=== PATIENT | male | born 1980 | race Caucasian/White ===

== ENCOUNTER 2017-11-12 11:35 | Observation (INO) | payer OTHER ==
[~2017-11-12] VITALS: Ht 180.3 cm; Wt 69.0 kg
[~2017-11-12 11:35] MED LIST: BENADRYL25 MG PO; Bactrim Ds Tab1 EACH PO; EPIPEN 2-P0.3 MG/0.3 IM; Keflex500 MG PO; Norco 5-325 Ta1 EACH PO; Pepcid20 MG PO
[2017-11-12 13:05] LABS: BASOPHILS ABSOLUTE AUTO 0.02 K/mm3 (0.00-0.23); BASOPHILS PERCENT AUTO 0 % (0-2); EOSINOPHILS ABSOLUTE AUTO 0.72 K/mm3 (0.00-0.68); EOSINOPHILS PERCENT AUTO 7 % (0-6); Hematocrit 41.2 % (37.0-53.0); Hemoglobin 13.8 g/dL (13.5-17.5); IMMATURE GRAN ABSOLUTE AUTO 0.03 K/mm3 (0.00-0.10); IMMATURE GRAN PERCENT AUTO 0 % (0-1); LYMPHOCYTES ABSOLUTE AUTO 2.43 K/mm3 (0.84-5.20); LYMPHOCYTES PERCENT AUTO 25 % (21-46); MONOCYTES ABSOLUTE AUTO 1.03 K/mm3 (0.16-1.47); MONOCYTES PERCENT AUTO 11 % (4-13); Mean Corpuscular HGB 30.4 pg (26.0-34.0); Mean Corpuscular HGB Conc 33.5 g/dL (31.5-36.5); Mean Platelet Volume 9.6 fL (9.1-12.4); NEUTROPHILS ABSOLUTE AUTO 5.61 K/mm3 (1.96-9.15); NEUTROPHILS PERCENT AUTO 57 % (41-73); Platelet Count 300 K/mm3 (150-400); RDW Coefficient Variation 12.1 % (11.7-14.2); RDW Standard Deviation 40.6 fL (35.1-46.3); Red Blood Cell Count 4.54 M/mm3 (4.30-5.90); White Blood Cell Count 9.84 K/mm3 (4.00-11.30)
[2017-11-12 13:09] LABS: Mean Corpuscular Volume 91 fL (80-100)
[2017-11-12 13:32] LABS: Alanine Aminotransfer (ALT/SGP 47 U/L (12-78); Alk Phos 61 U/L (50-136); Anion Gap 6 mmol/L (6-16); Aspartate Aminotrans (AST/SGOT 51 U/L (12-37); Bilirubin, Total 0.6 mg/dL (0.1-1.0); Blood Urea Nitrogen 17 mg/dL (8-24); Bun/Creatinine Ratio 20.7 (12.0-20.0); CO2, Blood 30 mmol/L (21-32); Calcium, Blood 8.7 mg/dL (8.5-10.1); Chloride, Blood 104 mmol/L (98-108); Creatinine, Blood 0.82 mg/dL (0.60-1.20); Ethanol (Alcohol), Blood, Med <3 mg/dL; Globulin, Blood 3.9 g/dL (2.2-4.0); Glomerular Filtration Rate >60 (60-); Glucose, Blood 108 mg/dL (70-99); Potassium, Blood 4.1 mmol/L (3.5-5.5); Salicylate 1.7 mg/dL (2.8-20.0); Sodium, Blood 140 mmol/L (136-145); Total Protein, Blood 7.9 g/dL (6.4-8.2)
[2017-11-12 13:44] LABS: Acetaminophen, Random <2.0 ug/mL (10.0-30.0)
[2017-11-13 02:20] LABS: U Amphetamine Screen DETECTED; U Barbituate Screen Not Detected; U Benzodiazapine Screen DETECTED; U Buprenorphine Screen DETECTED; U Cannabinoids Screen DETECTED; U Cocaine Screen Not Detected; U Methadone Screen DETECTED; U Methamphetamine Screen DETECTED; U Opiates Screen Not Detected; U Oxycodone Screen Not Detected; U Phencyclidine Screen Not Detected; U Propoxyphene Screen Not Detected
== END 2017-11-13 12:11 | disposition home or self-care (01) ==
LOC: ER 11:35 → EOR 11:36
PROVIDERS: Emergency Medicine
DX: F19.959 Other psychoactive substance use, unspecified with psychoactive substance-induced psychotic disorder, unspecified (principal); F15.10 Other stimulant abuse, uncomplicated; F11.10 Opioid abuse, uncomplicated; F17.200 Nicotine dependence, unspecified, uncomplicated; Z91.018 Allergy to other foods
CPT/HCPCS: 80053; 85025; 96361; 96374; 96376; 99285; G0378; G0480; J2060; J7030

== ENCOUNTER 2018-02-23 23:05 | Emergency (ER) | payer OTHER ==
[~2018-02-23] VITALS: Ht 180.3 cm; Wt 79.4 kg
[2018-02-24] MEDS ORDERED: EPIPEN 2-P0.3 MG/0.3 IM (00:02)
== END 2018-02-24 00:15 | disposition home or self-care (01) ==
LOC: ER 23:05
DX: R00.2 Palpitations (principal); F15.10 Other stimulant abuse, uncomplicated; T78.40XA Allergy, unspecified, initial encounter; F17.210 Nicotine dependence, cigarettes, uncomplicated
CPT/HCPCS: 93005; 93010; 99283

== ENCOUNTER 2018-06-05 00:24 | Emergency (ER) | payer OTHER ==
[~2018-06-05] VITALS: Ht 180.3 cm; Wt 81.7 kg
[2018-06-05] MEDS ORDERED: METH5 (00:49)
[2018-06-05 02:01] LABS: BASOPHILS ABSOLUTE AUTO 0.02 K/mm3 (0.00-0.23); BASOPHILS PERCENT AUTO 0 % (0-2); EOSINOPHILS ABSOLUTE AUTO 0.55 K/mm3 (0.00-0.68); EOSINOPHILS PERCENT AUTO 5 % (0-6); Hematocrit 37.2 % (37.0-53.0); Hemoglobin 12.8 g/dL (13.5-17.5); IMMATURE GRAN ABSOLUTE AUTO 0.03 K/mm3 (0.00-0.10); IMMATURE GRAN PERCENT AUTO 0 % (0-1); LYMPHOCYTES ABSOLUTE AUTO 1.46 K/mm3 (0.84-5.20); LYMPHOCYTES PERCENT AUTO 13 % (21-46); MONOCYTES ABSOLUTE AUTO 1.02 K/mm3 (0.16-1.47); MONOCYTES PERCENT AUTO 9 % (4-13); Mean Corpuscular HGB 31.1 pg (26.0-34.0); Mean Corpuscular HGB Conc 34.4 g/dL (31.5-36.5); Mean Corpuscular Volume 90 fL (80-100); Mean Platelet Volume 9.6 fL (9.1-12.4); NEUTROPHILS ABSOLUTE AUTO 8.17 K/mm3 (1.96-9.15); NEUTROPHILS PERCENT AUTO 73 % (41-73); Platelet Count 212 K/mm3 (150-400); RDW Coefficient Variation 12.6 % (11.7-14.2); RDW Standard Deviation 41.4 fL (35.1-46.3); Red Blood Cell Count 4.12 M/mm3 (4.30-5.90); White Blood Cell Count 11.25 K/mm3 (4.00-11.30)
[2018-06-05] MEDS ORDERED: Keflex500 MG PO (02:39)
[2018-06-05] MEDS ORDERED: Bactrim Ds Tab1 EACH PO (02:39)
[2018-06-05 03:05] LABS: Anion Gap 6 mmol/L (6-16); Blood Urea Nitrogen 21 mg/dL (8-24); Bun/Creatinine Ratio 25.2 (12.0-20.0); CO2, Blood 27 mmol/L (21-32); Calcium, Blood 8.3 mg/dL (8.5-10.1); Chloride, Blood 102 mmol/L (98-108); Creatinine, Blood 0.83 mg/dL (0.60-1.20); Glomerular Filtration Rate >60 (60-); Glucose, Blood 126 mg/dL (70-99); Potassium, Blood 3.6 mmol/L (3.5-5.5); Sodium, Blood 135 mmol/L (136-145)
== END 2018-06-05 03:12 | disposition home or self-care (01) ==
LOC: ER 00:24
PROVIDERS: Emergency Medicine
DX: L03.115 Cellulitis of right lower limb (principal); Z91.018 Allergy to other foods
CPT/HCPCS: 80048; 85025; 96365; 99283-25; J3370

== ENCOUNTER 2018-06-10 11:32 | Emergency (ER) | payer OTHER ==
[~2018-06-10] VITALS: Ht 180.3 cm; Wt 70.3 kg
[~2018-06-10 11:32] MED LIST changes: +METH5
[2018-06-10] MEDS ORDERED: Cleocin HCl300 MG PO ×2 (14:19→14:21)
== END 2018-06-10 14:37 | disposition home or self-care (01) ==
LOC: ER 11:32
DX: L03.115 Cellulitis of right lower limb (principal); L02.415 Cutaneous abscess of right lower limb; F17.210 Nicotine dependence, cigarettes, uncomplicated; Z91.048 Other nonmedicinal substance allergy status
CPT/HCPCS: 10061; 99283-25

== ENCOUNTER 2019-08-16 19:04 | Emergency (ER) | payer OTHER ==
[~2019-08-16] VITALS: Ht 180.3 cm; Wt 97.5 kg
[~2019-08-16 19:04] MED LIST changes: +Cleocin HCl300 MG PO
[2019-08-16 19:53] LABS: BASOPHILS ABSOLUTE AUTO 0.01 K/mm3 (0.00-0.23); BASOPHILS PERCENT AUTO 0 % (0-2); EOSINOPHILS PERCENT AUTO 2 % (0-6); Hematocrit 43.9 % (37.0-53.0); Hemoglobin 14.7 g/dL (13.5-17.5); IMMATURE GRAN ABSOLUTE AUTO 0.03 K/mm3 (0.00-0.10); IMMATURE GRAN PERCENT AUTO 0 % (0-1); LYMPHOCYTES ABSOLUTE AUTO 1.98 K/mm3 (0.84-5.20); LYMPHOCYTES PERCENT AUTO 21 % (21-46); MONOCYTES ABSOLUTE AUTO 0.63 K/mm3 (0.16-1.47); MONOCYTES PERCENT AUTO 7 % (4-13); Mean Corpuscular HGB 30.6 pg (26.0-34.0); Mean Corpuscular HGB Conc 33.5 g/dL (31.5-36.5); Mean Corpuscular Volume 91 fL (80-100); Mean Platelet Volume 9.6 fL (9.1-12.4); NEUTROPHILS ABSOLUTE AUTO 6.75 K/mm3 (1.96-9.15); NEUTROPHILS PERCENT AUTO 70 % (41-73); Platelet Count 277 K/mm3 (150-400); RDW Coefficient Variation 12.4 % (11.7-14.2); RDW Standard Deviation 41.5 fL (35.1-46.3); Red Blood Cell Count 4.81 M/mm3 (4.30-5.90)
[2019-08-16] MEDS ORDERED: Lamictal100 MG PO (20:07)
[2019-08-16] MEDS ORDERED: METH40 PO (20:08)
[2019-08-16 20:15] LABS: Alanine Aminotransfer (ALT/SGP 27 U/L (12-78); Albumin, Blood 4.1 g/dL (3.4-5.0); Alk Phos 81 U/L (50-136); Anion Gap 5 mmol/L (6-16); Aspartate Aminotrans (AST/SGOT 19 U/L (12-37); Bilirubin, Total 0.2 mg/dL (0.1-1.0); Blood Urea Nitrogen 12 mg/dL (8-24); CO2, Blood 31 mmol/L (21-32); Calcium, Blood 9.1 mg/dL (8.5-10.1); Chloride, Blood 103 mmol/L (98-108); Globulin, Blood 4.3 g/dL (2.2-4.0); Glomerular Filtration Rate >60 (60-); Glucose, Blood 98 mg/dL (70-99); Potassium, Blood 4.1 mmol/L (3.5-5.5); Sodium, Blood 139 mmol/L (136-145); Total Protein, Blood 8.4 g/dL (6.4-8.2)
[2019-08-16 20:52] LABS: Influenza A Negative (NEGATIVE); Influenza B Negative (NEGATIVE)
== END 2019-08-17 00:10 | disposition home or self-care (01) ==
LOC: ER 19:04
PROVIDERS: Emergency Medicine; Physician Assistant
DX: J11.1 Influenza due to unidentified influenza virus with other respiratory manifestations (principal); F32.9 Major depressive disorder, single episode, unspecified; F17.290 Nicotine dependence, other tobacco product, uncomplicated; Z79.899 Other long term (current) drug therapy
CPT/HCPCS: 80053; 83605; 85025; 87804; 96361; 96374; 96375; 99284-25; J0780; J1200; J1885; J2405; J3010; J7030

== ENCOUNTER 2020-10-02 13:28 | Emergency (ER) | payer OTHER ==
[~2020-10-02] VITALS: Ht 180.3 cm; Wt 100.2 kg
[~2020-10-02 13:28] MED LIST changes: +Lamictal100 MG PO; +METH40 PO
[2020-10-02 14:43] LABS: BASOPHILS ABSOLUTE AUTO 0.01 K/mm3 (0.00-0.23); BASOPHILS PERCENT AUTO 0 % (0-2); EOSINOPHILS PERCENT AUTO 6 % (0-6); Hematocrit 39.6 % (37.0-53.0); Hemoglobin 12.9 g/dL (13.5-17.5); IMMATURE GRAN ABSOLUTE AUTO 0.03 K/mm3 (0.00-0.10); IMMATURE GRAN PERCENT AUTO 1 % (0-1); LYMPHOCYTES ABSOLUTE AUTO 1.67 K/mm3 (0.84-5.20); LYMPHOCYTES PERCENT AUTO 31 % (21-46); MONOCYTES ABSOLUTE AUTO 0.46 K/mm3 (0.16-1.47); MONOCYTES PERCENT AUTO 9 % (4-13); Mean Corpuscular HGB 29.9 pg (26.0-34.0); Mean Corpuscular HGB Conc 32.6 g/dL (31.5-36.5); Mean Corpuscular Volume 92 fL (80-100); Mean Platelet Volume 9.4 fL (9.1-12.4); NEUTROPHILS ABSOLUTE AUTO 2.88 K/mm3 (1.96-9.15); NEUTROPHILS PERCENT AUTO 54 % (41-73); Platelet Count 229 K/mm3 (150-400); RDW Coefficient Variation 12.5 % (11.7-14.2); RDW Standard Deviation 42.7 fL (35.1-46.3); Red Blood Cell Count 4.31 M/mm3 (4.30-5.90); White Blood Cell Count 5.35 K/mm3 (4.00-11.30)
[2020-10-02 15:02] LABS: Alanine Aminotransfer (ALT/SGP 31 U/L (12-78); Albumin, Blood 3.9 g/dL (3.4-5.0); Alk Phos 66 U/L (50-136); Anion Gap 6 mmol/L (6-16); Aspartate Aminotrans (AST/SGOT 19 U/L (12-37); Bilirubin, Total 0.2 mg/dL (0.1-1.0); Blood Urea Nitrogen 15 mg/dL (8-24); Bun/Creatinine Ratio 17.4 (12.0-20.0); CO2, Blood 26 mmol/L (21-32); Calcium, Blood 9.4 mg/dL (8.5-10.1); Chloride, Blood 105 mmol/L (98-108); Creatinine, Blood 0.86 mg/dL (0.60-1.20); Glomerular Filtration Rate >60 (60-); Glucose, Blood 100 mg/dL (70-99); Potassium, Blood 4.5 mmol/L (3.5-5.5); Sodium, Blood 137 mmol/L (136-145); Total Protein, Blood 7.9 g/dL (6.4-8.2)
[2020-10-02] MEDS ORDERED: TRUVADA 200 MG1 EAC2 PO (15:35)
[2020-10-02] MEDS ORDERED: RALT400 PO (15:35)
[2020-10-03] MEDS ORDERED: METH40 PO (15:32)
[2020-10-03] MEDS ORDERED: AMPDEX30CR (15:32)
[2020-10-03] MEDS ORDERED: LAMO100 PO (15:33)
[2020-10-03] MEDS ORDERED: FAMO20 PO (15:33)
[2020-10-04 08:09] LABS: HCV ANTIBODY >11.0 (0.0-0.9); HIV SCREEN 4TH GENERATION WRFX Non Reactive (Non Reactive)
== END 2020-10-02 15:50 | disposition home or self-care (01) ==
LOC: ER 13:28
PROVIDERS: Emergency Medicine
DX: S81.831A Puncture wound without foreign body, right lower leg, initial encounter (principal); F17.290 Nicotine dependence, other tobacco product, uncomplicated; W46.1XXA Contact with contaminated hypodermic needle, initial encounter; Y92.89 Other specified places as the place of occurrence of the external cause; Y99.0 Civilian activity done for income or pay
CPT/HCPCS: 36415; 80053; 85025; 86317; 86803; 87389; 99283

== ENCOUNTER 2020-10-03 14:56 | Emergency (ER) | payer OTHER ==
[~2020-10-03] VITALS: Ht 180.3 cm; Wt 100.2 kg
[~2020-10-03 14:56] MED LIST changes: +RALT400 PO; +TRUVADA 200 MG1 EAC2 PO
[2020-10-03] MEDS ORDERED: AMPDEX30CR (15:32)
[2020-10-03] MEDS ORDERED: METH40 PO (15:32)
[2020-10-03] MEDS ORDERED: LAMO100 PO (15:33)
[2020-10-03] MEDS ORDERED: FAMO20 PO (15:33)
== END 2020-10-03 16:00 | disposition home or self-care (01) ==
LOC: ER 14:56
DX: Z77.21 Contact with and (suspected) exposure to potentially hazardous body fluids (principal); Z20.6 Contact with and (suspected) exposure to human immunodeficiency virus [HIV]; Z76.89 Persons encountering health services in other specified circumstances; Z79.891 Long term (current) use of opiate analgesic; Z79.899 Other long term (current) drug therapy
CPT/HCPCS: 99282

== ENCOUNTER 2020-10-04 18:04 | Emergency (ER) | payer OTHER ==
[~2020-10-04] VITALS: Ht 180.3 cm; Wt 100.2 kg
[~2020-10-04 18:04] MED LIST changes: +AMPDEX30CR; +FAMO20 PO; +LAMO100 PO
== END 2020-10-04 20:25 | disposition home or self-care (01) ==
LOC: ER 18:04
DX: Z77.21 Contact with and (suspected) exposure to potentially hazardous body fluids (principal); Z29.8 Encounter for other specified prophylactic measures; F17.290 Nicotine dependence, other tobacco product, uncomplicated; Z79.899 Other long term (current) drug therapy; Z79.891 Long term (current) use of opiate analgesic
CPT/HCPCS: 99281

== ENCOUNTER 2020-12-25 19:41 | Emergency (ER) | payer OTHER ==
[~2020-12-25] VITALS: Ht 180.3 cm; Wt 99.8 kg
== END 2020-12-26 00:55 | disposition home or self-care (01) ==
LOC: ER 19:41
DX: G43.909 Migraine, unspecified, not intractable, without status migrainosus (principal); F17.290 Nicotine dependence, other tobacco product, uncomplicated; Z79.899 Other long term (current) drug therapy
CPT/HCPCS: 36415; 96374; 96375; 99283-25; J0780; J1200

== ENCOUNTER 2021-03-05 18:52 | Emergency (ER) | payer OTHER ==
[~2021-03-05] VITALS: Ht 180.3 cm; Wt 97.5 kg
[2021-03-05 19:23] LABS: BASOPHILS ABSOLUTE AUTO 0.03 K/mm3 (0.00-0.23); BASOPHILS PERCENT AUTO 0 % (0-2); EOSINOPHILS ABSOLUTE AUTO 0.35 K/mm3 (0.00-0.68); EOSINOPHILS PERCENT AUTO 3 % (0-6); Hematocrit 40.8 % (37.0-53.0); Hemoglobin 13.5 g/dL (13.5-17.5); IMMATURE GRAN ABSOLUTE AUTO 0.08 K/mm3 (0.00-0.10); IMMATURE GRAN PERCENT AUTO 1 % (0-1); LYMPHOCYTES ABSOLUTE AUTO 4.32 K/mm3 (0.84-5.20); LYMPHOCYTES PERCENT AUTO 34 % (21-46); MONOCYTES ABSOLUTE AUTO 0.94 K/mm3 (0.16-1.47); MONOCYTES PERCENT AUTO 7 % (4-13); Mean Corpuscular HGB 30.4 pg (26.0-34.0); Mean Corpuscular HGB Conc 33.1 g/dL (31.5-36.5); Mean Corpuscular Volume 92 fL (80-100); Mean Platelet Volume 9.4 fL (9.1-12.4); NEUTROPHILS ABSOLUTE AUTO 6.97 K/mm3 (1.96-9.15); NEUTROPHILS PERCENT AUTO 55 % (41-73); Platelet Count 415 K/mm3 (150-400); RDW Coefficient Variation 12.9 % (11.7-14.2); RDW Standard Deviation 43.3 fL (35.1-46.3); Red Blood Cell Count 4.44 M/mm3 (4.30-5.90); White Blood Cell Count 12.69 K/mm3 (4.00-11.30)
[2021-03-05] MEDS ORDERED: PANT20 (19:31)
[2021-03-05 19:35] LABS: Albumin, Blood 4.5 g/dL (3.4-5.0); Albumin/Globulin Ratio 1.1 (0.8-1.8); Bilirubin, Total 0.8 mg/dL (0.1-1.0); Bun/Creatinine Ratio 17.9 (12.0-20.0); Calcium, Blood 9.4 mg/dL (8.5-10.1); Creatinine, Blood 1.4 mg/dL (0.60-1.20); Globulin, Blood 4.2 g/dL (2.2-4.0); Potassium, Blood 3.6 mmol/L (3.5-5.5); Total Protein, Blood 8.7 g/dL (6.4-8.2)
[2021-03-05] MEDS ORDERED: EPIPEN0.3 MG/0.1 IM (21:41)
== END 2021-03-05 21:50 | disposition home or self-care (01) ==
LOC: ER 18:52
PROVIDERS: Physician Assistant
DX: T78.40XA Allergy, unspecified, initial encounter (principal); F17.290 Nicotine dependence, other tobacco product, uncomplicated; Z79.899 Other long term (current) drug therapy; Y93.89 Activity, other specified; Y92.89 Other specified places as the place of occurrence of the external cause; Y99.0 Civilian activity done for income or pay
CPT/HCPCS: 36415; 80053; 85025; 96361; 96374; 96375; 99282-25; J1200; J2405; J2930; J7030

== ENCOUNTER 2022-07-08 02:39 | Inpatient (IN) | payer OTHER ==
[~2022-07-08] VITALS: Ht 180.3 cm; Wt 83.8 kg
[~2022-07-08 02:39] MED LIST changes: +EPIPEN0.3 MG/0.1 IM; +PANT20
[2022-07-08 04:36] LABS: BASOPHILS ABSOLUTE AUTO 0.01 K/mm3 (0.00-0.23); BASOPHILS PERCENT AUTO 0 % (0-2); EOSINOPHILS ABSOLUTE AUTO 0.15 K/mm3 (0.00-0.68); EOSINOPHILS PERCENT AUTO 3 % (0-6); Hematocrit 32.9 % (37.0-53.0); IMMATURE GRAN ABSOLUTE AUTO 0.01 K/mm3 (0.00-0.10); IMMATURE GRAN PERCENT AUTO 0 % (0-1); LYMPHOCYTES PERCENT AUTO 17 % (21-46); MONOCYTES ABSOLUTE AUTO 0.57 K/mm3 (0.16-1.47); MONOCYTES PERCENT AUTO 10 % (4-13); Mean Corpuscular HGB 29.3 pg (26.0-34.0); Mean Corpuscular HGB Conc 33.4 g/dL (31.5-36.5); Mean Corpuscular Volume 88 fL (80-100); Mean Platelet Volume 8.8 fL (9.1-12.4); NEUTROPHILS ABSOLUTE AUTO 4.12 K/mm3 (1.96-9.15); NEUTROPHILS PERCENT AUTO 70 % (41-73); Platelet Count 196 K/mm3 (150-400); RDW Coefficient Variation 12.6 % (11.7-14.2); RDW Standard Deviation 40.6 fL (35.1-46.3); Red Blood Cell Count 3.76 M/mm3 (4.30-5.90); White Blood Cell Count 5.86 K/mm3 (4.00-11.30)
[2022-07-08 04:58] LABS: Albumin, Blood 2.9 g/dL (3.4-5.0); Albumin/Globulin Ratio 0.6 (0.8-1.8); Bilirubin, Total 0.5 mg/dL (0.1-1.0); Bun/Creatinine Ratio 17.5 (12.0-20.0); Calcium, Blood 8.2 mg/dL (8.5-10.1); Creatinine, Blood 0.92 mg/dL (0.60-1.20); Globulin, Blood 4.5 g/dL (2.2-4.0); Potassium, Blood 3.1 mmol/L (3.5-5.5); Total Protein, Blood 7.4 g/dL (6.4-8.2)
--- NOTE | 2022-07-09 04:26 | NUR ---
SHIFT SUMMARY; PATIENT HAD NO ACUTE CHANGES IN CONDITION NOTED DURING NOC SHIFT. HE SLEPT COMFORTABLY ALL NIGHT ONLY ROUSING FOR 9PM MEDS AND VITAL SIGNS TO BE TAKEN. HE IS RECEIVING LR AT 125ML/HR. HE HAS A GOOD APPETITE AND IS COOPERATIVE WITH CARE. HE USES HIS CALL LIGHT APPROPRIATELY. LUNGS SOUNDS ARE GOOD THROUGHOUT. PULSES ARE STRONG IN ALL EXTREMITIES. HE DOES COMPLAIN OF RIGHT ARM PAIN AND IS MEDICATED WITH METHADONE AT 9PM WITH GOOD RESULTS. WILL CONTINUE TO MONITOR THIS PATIENT CLOSELY FOR ANY WANTS OR NEEDS UNTIL REPORT AND HAND OFF TO DAY SHIFT RN.
[2022-07-09 05:23] LABS: BASOPHILS ABSOLUTE AUTO 0.01 K/mm3 (0.00-0.23); BASOPHILS PERCENT AUTO 0 % (0-2); EOSINOPHILS ABSOLUTE AUTO 0.35 K/mm3 (0.00-0.68); EOSINOPHILS PERCENT AUTO 5 % (0-6); Hematocrit 32.7 % (37.0-53.0); Hemoglobin 11.1 g/dL (13.5-17.5); IMMATURE GRAN ABSOLUTE AUTO 0.02 K/mm3 (0.00-0.10); IMMATURE GRAN PERCENT AUTO 0 % (0-1); LYMPHOCYTES ABSOLUTE AUTO 1.24 K/mm3 (0.84-5.20); LYMPHOCYTES PERCENT AUTO 19 % (21-46); MONOCYTES ABSOLUTE AUTO 0.87 K/mm3 (0.16-1.47); MONOCYTES PERCENT AUTO 13 % (4-13); Mean Corpuscular HGB 29.4 pg (26.0-34.0); Mean Corpuscular HGB Conc 33.9 g/dL (31.5-36.5); Mean Corpuscular Volume 87 fL (80-100); Mean Platelet Volume 9.2 fL (9.1-12.4); NEUTROPHILS PERCENT AUTO 62 % (41-73); Platelet Count 219 K/mm3 (150-400); RDW Coefficient Variation 12.8 % (11.7-14.2); Red Blood Cell Count 3.77 M/mm3 (4.30-5.90); White Blood Cell Count 6.59 K/mm3 (4.00-11.30)
[2022-07-09 05:58] LABS: Bun/Creatinine Ratio 11.9 (12.0-20.0); Calcium, Blood 8.8 mg/dL (8.5-10.1); Creatinine, Blood 0.76 mg/dL (0.60-1.20)
--- NOTE | 2022-07-09 18:37 | NUR ---
SHIFT SUMMARY PT A&O X 4. VSS. R ARM SWOLLEN AND PAINFUL. PG IN L U ARM REQUIRED RE-POSITIONING BY CHRG RN. DRESSING CHANGED WELL. BECAME UNABLE TO FLUSH. IS NOW FLUSHING & IV ANTI BIOTICS ARE INFUSING ORDERED PER MD. PT'S BLOOD CULTURES GREW OUT GM+ COCCI IN CLUSTERS, PENDING SENSITIVITIES. PT INDEPENDENT IN THE ROOM FOR RESTROOM USE.
[2022-07-10 01:08] LABS: HIV AB/P24 AG SCREEN Non Reactive (Non Reactive)
--- NOTE | 2022-07-10 02:44 | NUR ---
SPOUSE PRESENT AT BEDSIDE. THIS RN OFFERS TO CALL SPIRITUAL CARE AND SPOUSE DECLINES AT THIS TIME. PATIENTS RESPIRATIONS ARE BETWEEN 6 AND 10 PER MINUTE. SKIN IS MOTTLED AND HOT. PATIENT DOES NOT ROUSE TO VERBAL OR PAINFULL STIMULI. ORAL CARE DONE ON PATIENT Q 4 HOURS AND MORE OFTEN IF NEEDED. REPOSITIONED OFTEN FOR COMFORT. WILL REMAIN AVAILABLE FOR THIS PATIENT AND FAMILY DURING THIS NOC SHIFT,
--- NOTE | 2022-07-10 02:55 | NUR ---
PATIENT APPEARS VERY AGITATED AND SHORT TEMPERED TONIGHT. HIS POWERGLIDE IS DC'D BY MARELNA POTTER IT IS NO LONGER FLUSHING AND PATENT. THIS RN STARTS 20GAUGE IV ON INSIDE OF LEFT WRIST. PATIENT REFUSING TO ALLOW THIS RN TO REPLACE PADS ON HIS SEASONING SPRAYER AND SAYS HE IS REFUSING TO ALLOW THEM REPLACED ANYMORE TONIGHT HE IS FRUSTRATED THAT THEY KEEP COMING OFF. 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 HE IS AO X 4. BREATHING IS FAST AND PATIENT ASKS THAT HE BE LEFT ALONE TO CALM DOWN. THIS RN CALLS TELE TO LET THEM KNOW HE WILL BE OFF TELE PER PATIENT REQUEST. IS NOTIFIED VIA TELEPHONE.
[2022-07-10 10:04] LABS: BASOPHILS ABSOLUTE AUTO 0.01 K/mm3 (0.00-0.23); BASOPHILS PERCENT AUTO 0 % (0-2); EOSINOPHILS ABSOLUTE AUTO 0.45 K/mm3 (0.00-0.68); EOSINOPHILS PERCENT AUTO 7 % (0-6); Hematocrit 40.8 % (37.0-53.0); Hemoglobin 13.1 g/dL (13.5-17.5); IMMATURE GRAN ABSOLUTE AUTO 0.03 K/mm3 (0.00-0.10); IMMATURE GRAN PERCENT AUTO 0 % (0-1); LYMPHOCYTES ABSOLUTE AUTO 1.31 K/mm3 (0.84-5.20); LYMPHOCYTES PERCENT AUTO 20 % (21-46); MONOCYTES ABSOLUTE AUTO 0.47 K/mm3 (0.16-1.47); MONOCYTES PERCENT AUTO 7 % (4-13); Mean Corpuscular HGB 28.7 pg (26.0-34.0); Mean Corpuscular HGB Conc 32.1 g/dL (31.5-36.5); Mean Corpuscular Volume 89 fL (80-100); Mean Platelet Volume 9.4 fL (9.1-12.4); NEUTROPHILS ABSOLUTE AUTO 4.42 K/mm3 (1.96-9.15); NEUTROPHILS PERCENT AUTO 66 % (41-73); Platelet Count 290 K/mm3 (150-400); RDW Coefficient Variation 12.9 % (11.7-14.2); RDW Standard Deviation 42.4 fL (35.1-46.3); Red Blood Cell Count 4.57 M/mm3 (4.30-5.90); White Blood Cell Count 6.69 K/mm3 (4.00-11.30)
[2022-07-10 10:13] LABS: Vancomycin, Trough 8.1 ug/mL (5.0-10.0)
[2022-07-10 10:27] LABS: Albumin, Blood 2.9 g/dL (3.4-5.0); Anion Gap 7 mmol/L (6-16); Blood Urea Nitrogen 11 mg/dL (8-24); Bun/Creatinine Ratio 16.4 (12.0-20.0); CO2, Blood 26 mmol/L (21-32); Calcium, Blood 9.4 mg/dL (8.5-10.1); Chloride, Blood 106 mmol/L (98-108); Creatinine, Blood 0.67 mg/dL (0.60-1.20); Glomerular Filtration Rate 120 (60-); Glucose, Blood 84 mg/dL (70-99); Phosphorus, Blood 3.5 mg/dL (2.5-4.9); Potassium, Blood 4.2 mmol/L (3.5-5.5); Sodium, Blood 139 mmol/L (136-145)
--- NOTE | 2022-07-10 17:12 | NUR ---
SHIFT SUMMARY PT AxOx4. PT HAD SOME IRRITABLE BEHAVIOR THIS AM, INITIALLY REFUSING BLOOD DRAWS. PT DID EVENTUALLY AGREE TO GET BLOOD DRAWN. PT ALSO HAD ECHO AND ULTRASOUND OF R EXTREMITY. PT MEDICATED FOR PAIN PER EMAR. PT IS CURRENTLY RESTING IN BED WITH CALL LIGHT IN REACH. VITALS REVIEWED. PT DENIES ANY NEEDS AT THIS TIME. PT'S ATTITUDE IS CALM AND COOPERATIVE THIS EVENING. PT VERBALIZED APPRECIATION OF KIND CARE FROM ALL STAFF THIS SHIFT.
--- NOTE | 2022-07-11 02:00 | NUR ---
FRIEND ENTERED THE UNIT, WITH A LARGE PURSE, ASKING FOR ERNA. SHE REPORTED SHE WAS HERE TO BRING HIM CLOTHES. I INSTRUCTED HER THAT SHE COULD HAND HIM THE TSHIRT AND SWEAT PANTS, BUT SHE COULDN'T HAND HIM ANYTHING ELSE. I CHECKED WITH LOLA LONDON AND SHE REPORTED THAT VISITING HOURS ARE OVER. I WENT INTO THE ROOM, AND INSTRUCTED PT'S FRIEND TO EXIT THE UNIT, VISITING HOURS ARE OVER. ERNA REPORTED HE WAS GOING TO FILE A GRIEVANCE, HE REPORTED THIS UNACCEPTABLE. I REPORTED THAT WITH HIS HISTORY, AND THE TIME THAT HIS FRIEND CAME IN TO BRING HIM CLOTHES, THAT I WAS CONCERNED ABOUT THIS. HE REPORTED THAT HE UNDERSTOOD ABOUT THE TIME LINE, BUT THAT HE HAS BEEN APPROPRIATE IN HIS BEHAVIOR. PT'S FRIEND DID LEAVE A TSHIRT AND SWEATS IN THE ROOM, AND THEN LEFT THE UNIT.
--- NOTE | 2022-07-11 05:07 | NUR ---
SHIFT SUMMARY - SEE PREVIOUS NOTE REGARDING FRIEND ARRIVAL AROUND 0200 TONIGHT, OTHERWISE NO ACUTE CHANGES THROUGHOUT THIS SHIFT. PT CONTINUES TO REPORT PAIN TO HIS RIGHT ARM - MEDICATED WITH SCHEDULED METHADONE, AND ADVIL PRN. PT HAS INTERMITTENTLY BEEN SLEEPING. TKO IV FLUIDS INFUSING. PT HAS REQUESTED SEVERAL DRINKS AND SNACK ITEMS DURING THE NIGHT. CALL LIGHT WITHIN REACH. BED IN LOW POSITION. FLUIDS AT BEDSIDE. PT DID REPORT HAVING DIARRHEA. MEDICATED WITH TUMS FOR INDIGESTION - NO FURTHER EPISODES OF INDIGESTION REPORTED. WILL REPORT OFF TO ONCOMING SHIFT REGARDING DIARRHEA, AND POTENTIAL FOR PROBIOTIC TODAY.
--- NOTE | 2022-07-11 18:46 | NUR ---
SHIFT SUMMARY: PATIENT A&OX4. PLEASANT AND COOPERATIVE WITH CARE. LUNGS CLEAR T/O. AMBULATES IN ROOM INDEPENDENTLY. RECIEVED SCHEDULED ANTIBIOTICS THIS SHIFT. ON TELE ' PER DEFENSIVE DRIVING INSTRUCTORTROY DIALLO. PATIENT REPORTS THAT HE WOULD LIKE TO QUIT USING DRUGS AND REQUESTED TO SPOKE TO NURSING AGENCY MANAGER TO HAVE AVAILABLE RESOURCES IN PLACE WHILE IN THE HOSPITAL. SUPERVISOR SHIPPING SAW AND SPOKE WITH PATIENT WITH REGARDS TO HIS REQUEST. PATIENT RECIEVED PRN PAIN MEDS. PATIENT CONTINUE TO REPORTS OF HAVING HEADACHE. CALLED DR. SANTIAGO AND RECIVED ORDER OF IMITREX PRN PO Q6. BED IN LOWEST POSITION, LOCKED AND CALL LIGHT IN REACH.
--- NOTE | 2022-07-12 07:10 | NUR ---
NOC SHIFT SUMMARY PT CALM, COOPERATIVE AND PLEASNT THROUGHOUT SHIFT. PT WAS VERY HUNGRY, AND ASKED FOR "SNACKS" ALL NIGHT. NO ISSUES NOTED. PT VERBALIZED HIS INTENT ON REMAINING SOBER, I PROVIDED THERAPEUTIC LISTENING, WHICH I BELIEVE THE PATIENT APPRECIATED.
--- NOTE | 2022-07-12 18:47 | NUR ---
PATIENT MOVED FROM [facility] TO [facility] THIS AM. HE WAS PLEASANT THIS SHIFT AND MOOD APPROPRIATE. HE HAS VERBALLY EXPRESSED THAT HE DESIRES SOBRIETY. PATIENT HAS HAD SCHEDULED METHADONE FOR PAIN AND ADDICTION. PATIENT HAD COMPANY THIS SHIFT. TWICE WHILE COMPANY WAS HERE THE IV BECAME PROBLEMATIC. IT HAD TO BE REMOVED AT 1830 DUE TO IT BEING PAINFUL AND A HARD LUMP DEVELOPING A SHORT DISTANCE FROM THE CATHETER. QUESTIONING WHY THE IV IS PROBLEMATIC DURING VISITS.
--- NOTE | 2022-07-13 03:52 | NUR ---
SHIFT SUMMARY; PATIENT SLIGHTLY AGITATED AT BEGINNING OF NOC SHIFT. HE IS IN NEED OF A NEW IV PLACED THE ONE HE HAD HAS INFILTRATED. MARLENA POTTER PLACES A 20GAUGE TO HIS RIGHT FOREARM USING ULTRASOUND GUIDED. PATIENT TOLERATED WELL AND APPEARS TO CALM SLIGHTLY AFTER PROCEDURE IS FINISHED. NS IS TKO TO KEEP IT FROM CLOTTING OFF. PATIENT IS MEDICATED WITH IBUPROFEN X 1 FOR PAIN FROM HIS RIGHT ARM. HIS VITAL SIGNS ARE ALL WITHIN NORMAL LIMITS AND HE IS NOT FEBRILE. NO REDNESS NOTED TO RIGHT ARM. HE DOES HAVE A AREA ABOVE HIS AC THAT APPEARS TO BE SWOLLEN AND IS HARD TO PALPATION. HIS LUNGS ARE CLEAR TO AUSCULTATION. WILL REMAIN AVAILABLE FOR THIS PATIENT FOR ANY WANTS OR NEEDS THAT MAY COME UP PRIOR TO REPORT AND HAND OFF AT SHIFT CHANGE.
--- NOTE | 2022-07-13 17:29 | NUR ---
PATIENT SLEPT AND MOOD WAS IRRITABLE IN THE AM. DURING AFTERNOON HOURS HE WAS IN A BETTER MOOD AND COMPANY WAS VISITING. HE DID HAVE A NEW IV PLACED OVERNIGHT LAST NIGHT AND IT IS FUNCTIONING AT THIS TIME 1730- PATIENT HAS COMPLAINED LESS ABOUT ARM PAIN, AND HAS NOT REQUESTED ICE THIS SHIFT. HE RATES PAIN 7/10 WHEN ASKED, HOWEVER.
--- NOTE | 2022-07-14 03:57 | NUR ---
SHIFT SUMMARY; PATIENT HAD NO ACUTE CHANGES IN CONDITION DURING NOC SHIFT. HE IS AO X 4. INDEPENDANT IN ROOM. ABLE TO MAKE HIS NEEDS KNOWN. HE IS SLIGHTLY AGITATED AND ABRUPT WITH STAFF. PATIENT SLEEPS INTERMITTENTLY DURING NIGHT AND STAYS IN HIS ROOM WITH DOOR SHUT. DURING ROUNDING PATIENT ROUSES EASILY AND MAKES GOOD EYE CONTACT. HE DENIES ANY WANTS OR NEEDS ONLY ASKING FOR OCCASIONAL SNACKS AND PEPSI. HIS VITAL SIGNS ARE WNL AND HIS LUNGS ARE CLEAR TO AUSCULTATION HE DOES COMPLAIN OF RIGHT ARM PAIN AND IS VERY SENSITIVE TO TOUCH AND YELLS OUT IF SOMEONE TOUCHES HIS SKIN ON HIS UPPER EXTREMITIES. WILL CONTINUE TO MONITOR THIS PAITENT CLOSELY FOR ANY WANTS OR NEEDS THAT COME UP PRIOR TO SHIFT CHANGE AND REPORT TO DAY SHIFT RN.
--- NOTE | 2022-07-14 16:31 | NUR ---
SHIFT SUMMARY PATIENT MEDICATED WITH SCHEUDLED METHADONE FOR PAIN. PATIENT DENIES NAUSEA AND SHORTNESS OF BREATH. PATIENT IS IND IN THE ROOM. PATIENT IV RUNNING TKO WITH ABX THROUGHOUT THE DAY. PATIENT CALLS APPROPRIATELY. PATIENT IS EATING AND DRINKING WELL. PATIENT IS PLEASANT AND COOPERATIVE WITH CARE.
--- NOTE | 2022-07-15 03:48 | NUR ---
RN ENT SUMMARY A&Ox4. PLEASANT AND COOPERATIVE WITH CARE. VOIDING AND STOOLING. VSS. INDEPENDENT WTIHIN ROOM AND CALLS APPROPRIATELY FOR NEEDS. NO C/O PAIN THIS EVENING. C/O "MUNCHIES" WHICH HE ATTRIBUTES TO BEING A SMOKER. NICOTINE PATCH STILL IN PLACE. NO ACUTE CONCERNS T/O THE NIGHT. WILL REPORT TO ONCOMING RN.
--- NOTE | 2022-07-15 18:26 | NUR ---
SHIFT SUMMARY: PT A&O X4, PLEASANT AND COOPERATIVE. PT EXPRESSED THE WANT TO QUIT USING STREET DRUGS AND WANTS TO BE ADMITTED TO A DRUG RAB FACILITY. PARLIAMENTARY COUNSEL CONTACTED. PT ABLE TO AMBULATE AND TRANSFER INDEPENDANTLY. PT HAS ADQUATE APPETITE THROUGHOUT SHIFT. PT RECEVIED ABX MEDICATION WITHOUT ANY ADVERSE REACTIONS OR SYMPTOMS. PT HAD ACHING PAIN IN HIS RIGHT ARM. PT RECEVIED METHODONE MEDICATIONS THROUGHOUT THE SHIFT. PT IN BED WITH CALL LIGHT WITHIN REACH.
--- NOTE | 2022-07-15 18:41 | NUR ---
THIS FLIGHT SIMULATOR TEACHER HAS REVIEWED AND AGREES WITH ALL NOTES AND ASSESSMENTS BY TARIQ RUBIO.
--- NOTE | 2022-07-16 04:15 | NUR ---
SHIFT SUMMARY PATIENT HAD NO ACUTE CHANGES. AXOX 4 AND INDEPENDENT IN ROOM. PIV REMAINS INTACT. IV ABX INFUSED. DENIES CHEST PAIN, SOB, AND N/V. SCHEDULE METHADONE REPORTING ACHING PAIN IN RIGHT ARM. SISTER IN FOR VISIT. ON ROOM AIR. COOPERATIVE WITH CARE. CALL LIGHT IN REACH. BED IN LOWEST POSITION. WILL CONTINUE TO MONITOR UNTIL DAY SHIFT NURSE ASSUMES CARE.
--- NOTE | 2022-07-16 18:05 | NUR ---
SHIFT SUMMARY: PT A&O X4, PLEASANT AND COOPERATIVE. PT SLET THROUGHOUT SHIFT. PT AWAKE FOR ALL MEALS. PT SEEN BY DR. BRYSON, NO NEW ORDERS AT THIS TIME. PT WILL CONTIUNE ABX TREATMENT TILL 07/24. PT HAD COMPLAINTS OF PAIN TO HIS RIGHT ARM, NO COMPLAINTS OF NAUSEA. PT AMBULATED IN ROOM INDEPENDANTLY PT RESTING IN BED WITH CALL LIGHT WITHIN REACH.
--- NOTE | 2022-07-16 18:28 | NUR ---
THIS IRISH MOSS GATHERER HAS REVIEWED AND AGREES WITH ALL NOTES AND ASSESSMENTS BY TARIQ RUBIO.
--- NOTE | 2022-07-17 05:05 | NUR ---
SHIFT SUMMARY PATIENT HAD NO ACUTE CHANGES. AXOX 4 AND INDEPENDENT IN ROOM. SCHEDULE METHADONE 10 MG FOR REPORTED RIGHT ARM PAIN. PIV REMAINS INTACT. IV ABX INFUSED. DENIES CHEST PAIN, SOB, AND N/V. VSS/AFEBRILE. CALL LIGHT IN REACH. BED IN LOWEST POSITION. WILL CONTINUE TO MONITOR UNTIL DAY SHIFT NURSE ASSUMES CARE.
--- NOTE | 2022-07-17 18:36 | NUR ---
SHIFT SUMMARY: PT A&O X4, PLEASANT AND CONVERSATIONAL. PT RECEVIED SCHEDULED METHADONE AND ABX. PT HAD DECREASED PAIN IN HIS RIGHT ARM. PT OFFERED PAIN MEDICATION AND DECLINED THE NEED FOR PAIN MEDICATION. CASE MANAGEMENT CONTACTED ABOUT DRUG REHAB PLACEMENT. PT SLEPT THROUGHOUT SHIFT AND AWAKE FOR ALL THREE MEALS. PT REQUESTED SNACKS IN BETWEEN MEALS. PT RESTING IN BED WITH CALL LIGHT WITHIN REACH.
--- NOTE | 2022-07-17 18:44 | NUR ---
THIS FINISHER TAILOR APPRENTICE HAS REVIEWED AND AGREES TO ALL NOTES AND ASSESSMENTS BY TARIQ RUBIO.
--- NOTE | 2022-07-18 04:24 | NUR ---
SHIFT SUMMARY PT C/O 9/10 PAIN AT THE START OF SHIFT DURING ASSESSMENT, RECIEVED SCHEDULED METHADONE AND NO MORE C/O PAIN. PT REMAINED IN ROOM WITH DOOR CLOSED, OCCASIONALY ASKING FOR SNACKS. RECIEVED IV ABX AND HIS LINE WAS KVO WITH NS T/O THE NIGHT. NO ACUTE EVENTS, VSS, PT COOPERATIVE WITH CARE.
--- NOTE | 2022-07-18 16:25 | NUR ---
SHIFT SUMMARY- PT A/OX4, INDEP IN ROOM. PT REPORTS PAIN TO RIGHT ARM. NO OTHER COMPLAINTS T/O THE DAY. LS CLEAR, ON RA. SCHEDULED METHADONE GIVEN. PT REQUESTED TO BE CHANGED TO [facility]FIDENT[facility] DUE TO PEOPLE CONTINUEING TO CONTACT HIM FOR DRUGS. PT REPORTS HE IS DONE WITH THE DRUGS AND WANTS TO GO TO [facility] AFTER HOSPITAL STAY. NO OTHER ACUTE CHANGES THIS SHIFT. PT WILL REMAIN IN THE HOSPITAL ON IV ABX UNTIL 07/24.
--- NOTE | 2022-07-19 04:19 | NUR ---
SHIFT SUMMARY PT HR ELEVATED AROUND 100, PT STATES THIS IS DUE TO RECENT LIFE STRESS. PER DAY NURSE REPORT PT IS NOW CONFIDENTIAL STATUS AND ONLY [place]LEY AND SERGE CAN VISIT. AT TIME OF SCHEDULED METHADONE PT STATED R ARM PAIN 04/23, 5/10 AFTER PAIN REASSESSMENT. NS RUNNING AT KVO TO MAINTANE LINE. IV ABX RCVD. IND IN ROOM. NO ACUTE EVENTS, VSS, PT COOPERATIVE WITH CARE.
--- NOTE | 2022-07-19 15:59 | NUR ---
SHIFT SUMMARY- PT A/OX4, INDEP IN ROOM. PT REPORTS PAIN TO RIGHT ARM, NO OTHER ACUTE CHANGES THIS SHIFT. NICOTINE PATCH INCREASED TO 21MG. PT TO CONTINUE IV ABX UNTIL 07/24.
--- NOTE | 2022-07-20 04:35 | NUR ---
LEATHER SHAVER SUMMARY: A&Ox4. PLEASANT AND COOPERATIVE WITH CARE. STOOLING AND VOIDING APPROPRIATELY. CALLS APPROPRIATELY. INDEPENDENT WITHIN ROOM. VSS. NO ACUTE ISSUES T/O NIGHT. WILL REPORT TO ONCOMING RN.
--- NOTE | 2022-07-20 17:23 | NUR ---
SHIFT SUMMARY- PT INDEPENDANT IN ROOM. IV BLOWN, HELD ANTIBIOTICS UNTIL POWER GLIDE INSERTED, SEE EMAR. POWERGLIDE RUNNING WELL, KVO 15ML HR. PT ANXIOUS AT TIMES. APPETITE GOOD. A & O X4. cALL LIGHT IN REACH.
--- NOTE | 2022-07-21 04:31 | NUR ---
SHIFT SUMMARY PATIENT IS ALERT AND ORIENTED. PATIENT HAS BEEN RECEIVING ABX TREATMENTS FOR ARM CELLULITIS. PATIENT HAS NOT COMPLAINED OF PAIN, NAUSEA, SOB OR VOMITTING THIS SHIFT. PATIENT HAS HAD NO ACUTE EVENTS THIS SHIFT. VITAL SIGNS REVIEWED. BED IN LOCKED AND LOWEST POSITION. CALL LIGHT IN PLACE. WILL MONITOR UNTIL SHIFT CHANGE.
--- NOTE | 2022-07-21 17:45 | NUR ---
Shift Summary Assumed care at approx 1600. A/O, up ad flynn. NS @ 15 via PG TKO. No acute concerns.
--- NOTE | 2022-07-22 04:05 | NUR ---
SHIFT SUMMARY PATIENT HAS BEEN ALERT AND ORIENTED. PATIENT HAS BEEN IND IN ROOM. PATIENT HAS BEEN RECEIVING ABX TREATMENT FOR CELLULITIS UNTIL THE . PATIENT HAS HAD NO ACUTE EVENTS THIS SHIFT. VITAL SIGNS REVIEWED. PATIENT HAS HAD NO COMPLAINTS OF PAIN, NAUSEA, SOB OR VOMITTING THIS SHIFT. BED IN LOWEST AND LOCKED POSITION. WILL MONITOR UNTIL SHIFT CHANGE.
--- NOTE | 2022-07-22 17:35 | NUR ---
Shift Summary A/O, uneventful day. Up ad flynn. Receiving IV abx. Methdone for generalized and RUE pain.
--- NOTE | 2022-07-23 05:59 | NUR ---
SHIFT SUMMARY: PT IS ALERT AND ORIENTED. PT IS CALM AND COOPERATIVE WITH CARE. PT CALLS APPROPRIATELY. PT IS INDEPENDENT IN THE ROOM. PT REPORTS PAIN ON ONE OCCASION, GAVE SCHEDULED METHADONE. PT DENIES NAUSEA, VOMITING, AND SOB. NO ACUTE CHANGES OR COMPLICATIONS OVERNIGHT. BED IN LOW POSITION, CALL LIGHT WITHIN REACH. WILL REPORT TO DAY NURSE.
--- NOTE | 2022-07-23 18:20 | NUR ---
SHIFT SUMMARY NO ACUTE CHANGES. PT A&0X4 AND COOPERATIVE OF CARE. INDEPENDENT IN ROOM. USES CALL LIGHT APPROPRIATELY. NO COMPLAINTS. BED IN LOWEST POSITION AND CALL LIGHT IN REACH.
--- NOTE | 2022-07-23 18:25 | NUR ---
Shift notes by TARIQ Doss were reviewed, this RN agrees.
--- NOTE | 2022-07-24 06:45 | NUR ---
NOC SHIFT SUMMARY PT ADMITTED FOR CELLULITIS OF RIGHT UPPER ARM; IMPROVED DRAMATICALLY SINCE ADMISSION. PT IS AAOX4; INDEPENDENT IN ROOM. PT IS CURRENTLY ON HIS 3RD POWERGLIDE, THEY KEPT CLOTTING OFF. NS AT 15 mL/HR TO KVO. NO ISSUES OVERNIGHT.
[2022-07-24] MEDS ORDERED: METH10 PO (13:05)
[2022-07-24] MEDS ORDERED: APHEN325 M1 PO (13:05)
[2022-07-24] MEDS ORDERED: IBUP400 PO (13:06)
[2022-07-24] MEDS ORDERED: VISBIOME 112.51 EACH PO (13:08)
[2022-07-24] MEDS ORDERED: Nicoderm Cq1 EAC1 TOP (13:11)
--- NOTE | 2022-07-24 13:38 | NUR ---
DISCHARGE SUMMARY PT AxOx4. COOPERATIVE WITH CARE. PT REPORTS PAIN IN R ARM WHERE RESOLVED CELLULITIS WAS AT A 5/10. PT MEDICATED WITH HIS SCHEDULED METHADONE THIS AM. PT ALSO GIVEN HIS LAST DOSE OF IV ABX. POWERGLIDE DC'D. VITALS REVIEWED. PATIENT RELATIONS REPRESENTATIVE COORDINATED OUTPATIENT REFERRAL TO [facility] TO RESTART CARE AT THE [facility]INIC. PT IS INSTRUCTED TO GO TO [facility] TOMORROW MORNING FOR NEXT DOSE OF METHADONE. DC INSTRUCTIONS DISCUSSED WITH PATIENT INCLUDING DC MEDS, FOLLOW UP APPOINTMENTS AND PATIENT EDUCATION. PT VERBALIZES UNDERSTANDING. PT DENIES ANY FURTHER QUESTIONS AT THIS TIME. PT SAFELY ESCORTED OUT VIA WC WITH PAPER PRODUCTS PRINTER.
== END 2022-07-24 13:36 | disposition home or self-care (01) | DRG 872 ==
LOC: ER 02:39 → MEDS 06:24
PROVIDERS: Internal Medicine; Student in an Organized Health Care Education/Training Program; ADMIT Internal Medicine
DX: A41.01 Sepsis due to Methicillin susceptible Staphylococcus aureus (principal); L03.113 Cellulitis of right upper limb; B19.10 Unspecified viral hepatitis B without hepatic coma; F32.A Depression, unspecified; B19.20 Unspecified viral hepatitis C without hepatic coma; G89.4 Chronic pain syndrome; F17.290 Nicotine dependence, other tobacco product, uncomplicated; F11.10 Opioid abuse, uncomplicated; E87.6 Hypokalemia; F15.10 Other stimulant abuse, uncomplicated; I80.8 Phlebitis and thrombophlebitis of other sites; Z71.51 Drug abuse counseling and surveillance of drug abuser; Z79.899 Other long term (current) drug therapy
CPT/HCPCS: 36415; 71045; 73201; 76882; 80048; 80053; 80069; 80202; 83605; 85025; 87040; 87077; 87186; 87389; 93005; 93010; 93306; 93971; 96365-59; 96366; 96375; 96376; 99285-25; A9270; C1751; J0690; J0780; J1170; J1650; J1885; J3370; J7050; J7120; Q9967

== ENCOUNTER 2022-08-20 06:56 | Emergency (ER) | payer OTHER ==
[~2022-08-20] VITALS: Ht 177.8 cm; Wt 79.4 kg
[~2022-08-20 06:56] MED LIST changes: +APHEN325 M1 PO; +IBUP400 PO; +METH10 PO; +Nicoderm Cq1 EAC1 TOP; +VISBIOME 112.51 EACH PO
[2022-08-20] MEDS ORDERED: CEPH500 PO (09:35)
== END 2022-08-20 10:37 | disposition home or self-care (01) ==
LOC: ER 06:56
DX: M79.602 Pain in left arm (principal); F17.290 Nicotine dependence, other tobacco product, uncomplicated
CPT/HCPCS: 76882; A9270

== ENCOUNTER 2022-09-30 18:39 | Inpatient (IN) | payer OTHER ==
[~2022-09-30] VITALS: Ht 180.3 cm; Wt 83.9 kg
[~2022-09-30 18:39] MED LIST changes: +CEPH500 PO
[2022-09-30 19:32] LABS: BASOPHILS ABSOLUTE AUTO 0.02 K/mm3 (0.00-0.23); BASOPHILS PERCENT AUTO 0 % (0-2); EOSINOPHILS ABSOLUTE AUTO 0.66 K/mm3 (0.00-0.68); EOSINOPHILS PERCENT AUTO 5 % (0-6); Hemoglobin 11.7 g/dL (13.5-17.5); IMMATURE GRAN ABSOLUTE AUTO 0.06 K/mm3 (0.00-0.10); IMMATURE GRAN PERCENT AUTO 1 % (0-1); LYMPHOCYTES ABSOLUTE AUTO 2.39 K/mm3 (0.84-5.20); LYMPHOCYTES PERCENT AUTO 19 % (21-46); MONOCYTES ABSOLUTE AUTO 1.27 K/mm3 (0.16-1.47); MONOCYTES PERCENT AUTO 10 % (4-13); Mean Corpuscular HGB 28.7 pg (26.0-34.0); Mean Corpuscular HGB Conc 33.4 g/dL (31.5-36.5); Mean Corpuscular Volume 86 fL (80-100); Mean Platelet Volume 9.1 fL (9.1-12.4); NEUTROPHILS ABSOLUTE AUTO 8.37 K/mm3 (1.96-9.15); NEUTROPHILS PERCENT AUTO 66 % (41-73); Platelet Count 431 K/mm3 (150-400); RDW Coefficient Variation 12.7 % (11.7-14.2); RDW Standard Deviation 40.2 fL (35.1-46.3); Red Blood Cell Count 4.07 M/mm3 (4.30-5.90); White Blood Cell Count 12.77 K/mm3 (4.00-11.30)
[2022-09-30] MEDS ORDERED: ALBU90OI INH (19:45)
[2022-09-30 19:49] LABS: Influenza A, PCR NEGATIVE (NEGATIVE); Influenza B, PCR NEGATIVE (NEGATIVE); Resp Syncytial Virus, PCR NEGATIVE (NEGATIVE); SARS-Cov-2 (COVID-19) PCR, MMC NEGATIVE (NEGATIVE)
[2022-09-30 20:03] LABS: Albumin/Globulin Ratio 0.6 (0.8-1.8); Bilirubin, Total 0.3 mg/dL (0.1-1.0); Bun/Creatinine Ratio 15.2 (12.0-20.0); Calcium, Blood 8.2 mg/dL (8.5-10.1); Creatinine, Blood 0.73 mg/dL (0.60-1.20); Globulin, Blood 4.9 g/dL (2.2-4.0); Potassium, Blood 3.6 mmol/L (3.5-5.5); Total Protein, Blood 7.9 g/dL (6.4-8.2)
[2022-10-01 03:48] LABS: BASOPHILS ABSOLUTE AUTO 0.02 K/mm3 (0.00-0.23); BASOPHILS PERCENT AUTO 0 % (0-2); EOSINOPHILS ABSOLUTE AUTO 0.48 K/mm3 (0.00-0.68); EOSINOPHILS PERCENT AUTO 4 % (0-6); Hematocrit 32.2 % (37.0-53.0); IMMATURE GRAN ABSOLUTE AUTO 0.06 K/mm3 (0.00-0.10); IMMATURE GRAN PERCENT AUTO 1 % (0-1); LYMPHOCYTES ABSOLUTE AUTO 1.67 K/mm3 (0.84-5.20); LYMPHOCYTES PERCENT AUTO 15 % (21-46); MONOCYTES ABSOLUTE AUTO 1.21 K/mm3 (0.16-1.47); MONOCYTES PERCENT AUTO 11 % (4-13); Mean Corpuscular HGB 29.4 pg (26.0-34.0); Mean Corpuscular HGB Conc 34.2 g/dL (31.5-36.5); Mean Corpuscular Volume 86 fL (80-100); Mean Platelet Volume 9.1 fL (9.1-12.4); NEUTROPHILS ABSOLUTE AUTO 7.94 K/mm3 (1.96-9.15); NEUTROPHILS PERCENT AUTO 70 % (41-73); Platelet Count 374 K/mm3 (150-400); RDW Coefficient Variation 12.8 % (11.7-14.2); RDW Standard Deviation 40.3 fL (35.1-46.3); Red Blood Cell Count 3.74 M/mm3 (4.30-5.90); White Blood Cell Count 11.38 K/mm3 (4.00-11.30)
[2022-10-01 04:13] LABS: Albumin, Blood 2.6 g/dL (3.4-5.0); Albumin/Globulin Ratio 0.6 (0.8-1.8); Bilirubin, Total 0.3 mg/dL (0.1-1.0); Bun/Creatinine Ratio 11.4 (12.0-20.0); Calcium, Blood 8.2 mg/dL (8.5-10.1); Creatinine, Blood 0.62 mg/dL (0.60-1.20); Globulin, Blood 4.4 g/dL (2.2-4.0); Potassium, Blood 3.5 mmol/L (3.5-5.5)
--- NOTE | 2022-10-01 06:50 | NUR ---
SHIFT SUMMARY A/OX4, SBA TO BATHROOM D/T LINES AND CORDS. C/O PAIN TO R. CLAVICLE/RIBS, PT IS UNSURE WHAT THIS COULD BE RELATED TO. DENIES CHEST PAIN/SOB. PRODUCTIVE COUGH WITH THICK GREEN SPUTUM NOTED. CURRENTLY ON RA WITH SATS GREATER THAN 92. VSS, NO ACUTE CHANGES AT THIS TIME. BED IN LOWEST POSITION WITH CALL LIGHT IN REACH. WILL CONTINUE TO MONITOR AND REPORT TO ONCOMING RN.
--- NOTE | 2022-10-01 17:10 | NUR ---
SHIFT SUMMARY PT HAS BEEN RESTING QUIETLY IN ROOM. PT HAS BEEN INDEPENDENT IN ROOM, AMBULATING TO THE RESTROOM AND AROUND ROOM. PT STATED THAT THEY WOULD LIKE TO SEEK TREATMENT FOR SUBSTANCE ABUSE AFTER DISCHARGE. PT HAS C/O PAIN TO THE LEFT SHOULDER AND LEFT CHEST WALL, DESCRIBING A CONSTANT DULL ACHE WITH SHARP PAIN THAT RESULTS FROM COUGHING. A HEATING PAD WAS SUPPLIED TO THE PT TO APPLY TO THE AREA AND THEY REPORT MODERATE RELIEF OF THE CONSTANT ACHE. MEDICATIONS WERE GIVEN PER EMAR TO TREAT THE COUGH AND PAIN. VITAL SIGNS HAVE REMAINED STABLE.
--- NOTE | 2022-10-02 00:37 | NUR ---
PT NOTABLY MORE DISORIENTED DURING THE NIGHT; SAYS HE USUALLY DOESN'T KEEP A REGULAR SLEEP SCHEDULE AND HE GETS CONFUSED IF HE DOES. STILL PLEASANT AND COOPERATIVE; PRN MEDS GIVEN FOR COMFORT.
[2022-10-02 04:17] LABS: Hematocrit 32.6 % (37.0-53.0); Hemoglobin 10.7 g/dL (13.5-17.5); Mean Corpuscular HGB Conc 32.8 g/dL (31.5-36.5); Mean Corpuscular Volume 88 fL (80-100); Mean Platelet Volume 9.4 fL (9.1-12.4); Platelet Count 336 K/mm3 (150-400); RDW Coefficient Variation 13.2 % (11.7-14.2); RDW Standard Deviation 42.5 fL (35.1-46.3); Red Blood Cell Count 3.69 M/mm3 (4.30-5.90); White Blood Cell Count 9.51 K/mm3 (4.00-11.30)
[2022-10-02 04:49] LABS: Albumin, Blood 2.4 g/dL (3.4-5.0); Anion Gap 4 mmol/L (6-16); Blood Urea Nitrogen 8 mg/dL (8-24); Bun/Creatinine Ratio 13.1 (12.0-20.0); CO2, Blood 30 mmol/L (21-32); Calcium, Blood 8.7 mg/dL (8.5-10.1); Chloride, Blood 105 mmol/L (98-108); Creatinine, Blood 0.61 mg/dL (0.60-1.20); Glomerular Filtration Rate 123 (60-); Glucose, Blood 104 mg/dL (70-99); Phosphorus, Blood 3.9 mg/dL (2.5-4.9); Sodium, Blood 139 mmol/L (136-145)
--- NOTE | 2022-10-02 06:47 | NUR ---
SHIFT SUMMARY: patient is pleasant and cooperative. Reports not sleeping much overnight. He continues to c/o shoulder/chest wall pain, especially with coughing or movement. Not on telemetry; SpO2 was on all night, but author removed towards morning as there is no order for it, it was incorrectly alarming on monitor and pt has remained >90% on RA all shift. He is up independently and uses bathroom with no issues r/t IV pole. No new skin issues noted. Will continue to monitor. As noted previously, pt says he does want to quit using and says it's killing him. 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 Author attempted encouraging patient and built good rapport. Patient did awake during the night and was a bit disoriented; see previous note by this author. Towards morning he does seem more anxious/jittery/flight of ideas similar to withdrawal symptoms.
[2022-10-02] MEDS ORDERED: ALBU90OI INH (12:43)
[2022-10-02] MEDS ORDERED: Tessalon200 MG PO (12:44)
[2022-10-02] MEDS ORDERED: Acetaminophen325 M1 PO (12:44)
[2022-10-02] MEDS ORDERED: LACT PO (12:45)
[2022-10-02] MEDS ORDERED: IBUP400 PO (12:46)
[2022-10-02] MEDS ORDERED: ZITHROMAX500 MG PO (12:46)
[2022-10-02] MEDS ORDERED: CEFU500T30 PO (12:46)
--- NOTE | 2022-10-02 14:55 | NUR ---
DISCHARGE SUMMARY PT INDEPENDENTLY AMBULATED TO THE EXIT. PT EXPRESSED FRUSTRATION AT DISCHARGE. FRUSTRATION WAS UNRELATED TO CARE BUT DIRECTED AT STAFF AND PROVIDERS. PT WAS PREOCCUPIED WITH MAKING PHONE CALLS AND PAID LITTLE ATTENTION TO DISCHARGE INSTRUCTIONS. PT DID NOT HAVE ANY QUESTIONS OR CONCERNS RELATED TO DISCHARGE TEACHING.
== END 2022-10-02 14:45 | disposition home or self-care (01) | DRG 871 ==
LOC: ER 18:39 → PCU 10-01 00:20
PROVIDERS: Family Medicine; Internal Medicine; Student in an Organized Health Care Education/Training Program; ADMIT Family Medicine
DX: A41.9 Sepsis, unspecified organism (principal); J18.9 Pneumonia, unspecified organism; Z20.822 Contact with and (suspected) exposure to COVID-19; Z28.21 Immunization not carried out because of patient refusal; F17.290 Nicotine dependence, other tobacco product, uncomplicated; F32.A Depression, unspecified; B19.20 Unspecified viral hepatitis C without hepatic coma; F11.10 Opioid abuse, uncomplicated; F15.10 Other stimulant abuse, uncomplicated
CPT/HCPCS: 0241U; 36415; 71046; 80053; 80069; 83605; 84484; 85025; 85027; 85379; 93005; 93010; 96365; 96375; 99285-25; A9270; J0456; J0696; J1885; J7030; J7050; J7120

== ENCOUNTER 2022-11-21 12:56 | Inpatient (IN) | payer OTHER ==
[~2022-11-21] VITALS: Ht 180.3 cm; Wt 76.4 kg
[~2022-11-21 12:56] MED LIST changes: +ALBU90OI INH; +Acetaminophen325 M1 PO; +CEFU500T30 PO; +LACT PO; +Tessalon200 MG PO; +ZITHROMAX500 MG PO
[2022-11-21 15:23] LABS: BASOPHILS ABSOLUTE AUTO 0.05 K/mm3 (0.00-0.23); BASOPHILS PERCENT AUTO 0 % (0-2); EOSINOPHILS PERCENT AUTO 0 % (0-6); Hematocrit 46.3 % (37.0-53.0); Hemoglobin 15.3 g/dL (13.5-17.5); IMMATURE GRAN ABSOLUTE AUTO 0.39 K/mm3 (0.00-0.10); IMMATURE GRAN PERCENT AUTO 2 % (0-1); LYMPHOCYTES ABSOLUTE AUTO 0.85 K/mm3 (0.84-5.20); LYMPHOCYTES PERCENT AUTO 4 % (21-46); MONOCYTES ABSOLUTE AUTO 1.21 K/mm3 (0.16-1.47); MONOCYTES PERCENT AUTO 6 % (4-13); Mean Corpuscular HGB 28.7 pg (26.0-34.0); Mean Corpuscular Volume 87 fL (80-100); Mean Platelet Volume 9.7 fL (9.1-12.4); NEUTROPHILS ABSOLUTE AUTO 18.22 K/mm3 (1.96-9.15); NEUTROPHILS PERCENT AUTO 88 % (41-73); Platelet Count 187 K/mm3 (150-400); RDW Coefficient Variation 13.9 % (11.7-14.2); RDW Standard Deviation 44.2 fL (35.1-46.3); Red Blood Cell Count 5.33 M/mm3 (4.30-5.90); White Blood Cell Count 20.72 K/mm3 (4.00-11.30)
[2022-11-21 15:32] LABS: Influenza A, PCR NEGATIVE (NEGATIVE); Influenza B, PCR NEGATIVE (NEGATIVE); Resp Syncytial Virus, PCR NEGATIVE (NEGATIVE); SARS-Cov-2 (COVID-19) PCR, MMC NEGATIVE (NEGATIVE)
[2022-11-21 15:51] LABS: Albumin, Blood 3.4 g/dL (3.4-5.0); Albumin/Globulin Ratio 0.6 (0.8-1.8); Bilirubin, Total 0.8 mg/dL (0.1-1.0); Bun/Creatinine Ratio 16.3 (12.0-20.0); Calcium, Blood 9.2 mg/dL (8.5-10.1); Creatinine, Blood 0.8 mg/dL (0.60-1.20); Globulin, Blood 5.4 g/dL (2.2-4.0); Potassium, Blood 3.8 mmol/L (3.5-5.5); Total Protein, Blood 8.8 g/dL (6.4-8.2)
--- NOTE | 2022-11-21 22:42 | NUR ---
NURSE NOTE PATIENT WAS TACHYCARDIC AND TEMP ELEVATEDDR NOTIFIED. TELE ORDER AND TYLENOL OBTAINED. PATIENT REFUSED VITALS RECHECKED
--- NOTE | 2022-11-22 04:33 | NUR ---
SHIFT SUMMARY PATIENT IS ALERT AND ORIENTED. PATIENT IS A RECENT ADMIT FOR BILATERAL PNEUMONIA. PATIENT HAS COMPLAINED OF PAIN IN HEAD AND HIPS AND MEDICATED PER EMAR. PATIENT HAS NOT COMPLAINED OF SOB. PATIENT HAS HAD N/V THIS SHIFT AND MEDICATED PER EMAR. PATIENT HAS HAD ELEVATED TEMPERATURE AND MEDICATED WITH TYLENOL, ADVIL ADDED BUT PATIENT DECLINED ADDITIONAL DOSE. PATIENT HAS REFUSED ADDITIONAL MORNING VITALS. PATIENTS HR HAS BEEN ELEVATED AND PATIENT WAS PUT ON TELE. DR IS AWARE AND IS NOT CONCERNED IF IT IS SINUS TACHYCARDIA. PATIENT HAS HAD ONE BAG OF FLUID INFUSED AND IS SALINE LOCKED CURRENTLY.
[2022-11-22 05:59] LABS: BASOPHILS ABSOLUTE AUTO 0.04 K/mm3 (0.00-0.23); BASOPHILS PERCENT AUTO 0 % (0-2); Hemoglobin 13.4 g/dL (13.5-17.5); LYMPHOCYTES ABSOLUTE AUTO 0.71 K/mm3 (0.84-5.20); LYMPHOCYTES PERCENT AUTO 4 % (21-46); MONOCYTES ABSOLUTE AUTO 0.77 K/mm3 (0.16-1.47); MONOCYTES PERCENT AUTO 5 % (4-13); Mean Corpuscular HGB 29.1 pg (26.0-34.0); Mean Corpuscular HGB Conc 34.4 g/dL (31.5-36.5); Mean Corpuscular Volume 85 fL (80-100); Platelet Count 176 K/mm3 (150-400); RDW Coefficient Variation 13.9 % (11.7-14.2); Red Blood Cell Count 4.61 M/mm3 (4.30-5.90); White Blood Cell Count 16.35 K/mm3 (4.00-11.30)
[2022-11-22 06:04] LABS: EOSINOPHILS ABSOLUTE AUTO 1.31 K/mm3 (0.00-0.68); EOSINOPHILS PERCENT AUTO 8 % (0-6); IMMATURE GRAN ABSOLUTE AUTO 0.33 K/mm3 (0.00-0.10); IMMATURE GRAN PERCENT AUTO 2 % (0-1); NEUTROPHILS ABSOLUTE AUTO 13.19 K/mm3 (1.96-9.15); NEUTROPHILS PERCENT AUTO 81 % (41-73)
[2022-11-22 06:35] LABS: Albumin, Blood 2.7 g/dL (3.4-5.0); Albumin/Globulin Ratio 0.5 (0.8-1.8); Bilirubin, Total 0.5 mg/dL (0.1-1.0); Creatinine, Blood 0.75 mg/dL (0.60-1.20); Potassium, Blood 3.2 mmol/L (3.5-5.5); Total Protein, Blood 7.7 g/dL (6.4-8.2)
--- NOTE | 2022-11-22 19:38 | NUR ---
PT ALERT NO S/S OF ACUTE DISTRESS. SAFETY MEASURES IN PLACE REPORT GIVEN TO ON COMING NURSE.
[2022-11-23 05:57] LABS: Hematocrit 34.8 % (37.0-53.0); Mean Corpuscular HGB Conc 34.5 g/dL (31.5-36.5); Mean Corpuscular Volume 84 fL (80-100); Platelet Count 210 K/mm3 (150-400); RDW Standard Deviation 43.4 fL (35.1-46.3); Red Blood Cell Count 4.14 M/mm3 (4.30-5.90); White Blood Cell Count 11.82 K/mm3 (4.00-11.30)
[2022-11-23 07:02] LABS: Bun/Creatinine Ratio 27.6 (12.0-20.0); Calcium, Blood 8.5 mg/dL (8.5-10.1); Creatinine, Blood 0.83 mg/dL (0.60-1.20); Potassium, Blood 3.2 mmol/L (3.5-5.5)
--- NOTE | 2022-11-23 07:17 | NUR ---
BATH STEWARD/STEWARDESS SUMMARY: A&Ox4. PLEASANT AND COOPERATIVE WITH THIS RNs CARE. CALLS APPROPRIATELY AND IS ABLE TO COMMUNICATE NEEDS EFFECTIVELY. C/O GENERALIZED ACHES AND PAINS T/O BODY HE ATTRIBUTES TO WITHDRAL Sx. PRN NORCO x2 ADMINISTERED x3 T/O SHIFT AND PHENERGAN x1. KVO @ 15mL/hr INITIATED D/T Hx DIFFICULT STICK AND FREQUENT LOSS OF IV ACCESS. TELE SINUS TACH. HOPING TO DC TO DRUG AND ETOH FACILITY TO GET CLEAN. REPORT TO ONCOMING RN.
--- NOTE | 2022-11-23 19:22 | NUR ---
pt alert no s/s of acute distress, safety measures in place report given to on coming nurse.
--- NOTE | 2022-11-24 01:27 | NUR ---
PT NOTED TO BE HAVING MORE PAIN THAN LAST NIGHT. SITTING FORWARD, GRASPING AT RIGHT SIDE AND WINCING. MEDICATED PRN NORCO x2 AND HEATING PAD PROVIDED x2. LUNGS COARSE T/O w/ RONCHI AND WHEEZE. RT TO BEDSIDE WITH OFFER OF FLUTTER AND RECOMMENDED ASKING PROVIDER FOR CXR. PER LEDY GILL FOR CXR. ORDER PLACED.
--- NOTE | 2022-11-24 06:39 | NUR ---
CEMENT FINISHER APPRENTICE SUMMARY: A&Ox4. CALLS APPROPRIATELY AND IS ABLE TO COMMUNICATE NEEDS EFFECTIVELY. AGITATED TONIGHT; HAVING SIGNIFICANTLY INCREASED PAIN IN RIGHT SIDE/LUNG REGION UNRELIEVED WITH HEATING PAD AND NORCO x2. RECEIVED ORDER FOR CXR LAST ONE DONE 11/21/22. LUNGS COARSE T/O WITH RONCHI AND WHEEZE ON RIGHT SIDE. RT TO BEDSIDE, SUGGESTED FLUTTER THERAPY. CONTINUES TO HAVE C / O RIGHT-SIDED PAIN. PENDING CXR REVIEW. WILL REPORT TO ONCOMING RN.
--- NOTE | 2022-11-24 19:18 | NUR ---
PT ALERT NO S/S OF ACUTE DISTRESS. SAFETY MEASURES IN PLACE, REPORT GIVEN TO ON COMING NURSE.
[2022-11-25 05:43] LABS: Bun/Creatinine Ratio 21.6 (12.0-20.0); Calcium, Blood 8.4 mg/dL (8.5-10.1); Creatinine, Blood 0.65 mg/dL (0.60-1.20); Potassium, Blood 3.2 mmol/L (3.5-5.5)
--- NOTE | 2022-11-25 19:11 | NUR ---
PT ALERT NO S/S OF ACUTE DISTRESS. SAFETY MEASURES IN PLACE, REPORT GIVEN TO ON COMING NURSE.
--- NOTE | 2022-11-26 04:38 | NUR ---
SHIFT SUMMARY 42 YR M ADMITTED ON 11/21/22 FOR PNEUMONIA. FULL CODE. NO ACUTE CHANGES THIS SHIFT. PT C/O PAIN IN HIS RLL AND WAS MEDICATED PER EMAR. HE IS COOPERATIVE WITH CARE BUT CANGET GRUMPY AT TIMES. HE ASKS FOR SNACKS OFTEN AND HAS SLEPT OFF AND ON THROUGHOUT THIS SHIFT.
[2022-11-26] MEDS ORDERED: GUAI600T33 PO (09:44)
[2022-11-26] MEDS ORDERED: DOXY100 PO (09:45)
[2022-11-26] MEDS ORDERED: OXYC5 PO (09:45)
--- NOTE | 2022-11-26 12:17 | NUR ---
PT DISCHARGED FROM THE UNIT. DISCHARGE INSTRUCTIONS REVIEWED. POWERGLIDE REMOVED. MEDICATIONS FAXED TO PHARMACY, HARD SCRIPT SENT WITH PT. PT AMBULATED OFF THE UNIT.
== END 2022-11-26 12:23 | disposition home or self-care (01) | DRG 871 ==
LOC: ER 12:56 → MEDS 16:36
PROVIDERS: Emergency Medicine; Internal Medicine; ADMIT Internal Medicine
DX: A41.9 Sepsis, unspecified organism (principal); J18.9 Pneumonia, unspecified organism; E87.1 Hypo-osmolality and hyponatremia; F32.A Depression, unspecified; Z59.00 Homelessness unspecified; Z20.822 Contact with and (suspected) exposure to COVID-19; Z28.21 Immunization not carried out because of patient refusal; B19.20 Unspecified viral hepatitis C without hepatic coma; F11.10 Opioid abuse, uncomplicated; R07.89 Other chest pain; F15.10 Other stimulant abuse, uncomplicated; F12.10 Cannabis abuse, uncomplicated; E87.6 Hypokalemia; F17.290 Nicotine dependence, other tobacco product, uncomplicated; Z79.899 Other long term (current) drug therapy
CPT/HCPCS: 0241U; 36415; 71045; 71046; 80048; 80053; 83605; 84145; 85025; 85027; 87040; 94640; 94664; 94760; 96365; 99285-25; A9270; C1751; J0456; J0696; J2550; J7030; J7050

== ENCOUNTER 2022-12-27 16:09 | Emergency (ER) | payer OTHER ==
[~2022-12-27] VITALS: Ht 180.3 cm; Wt 74.8 kg
[~2022-12-27 16:09] MED LIST changes: +DOXY100 PO; +GUAI600T33 PO; +OXYC5 PO
[2022-12-27 17:36] LABS: BASOPHILS ABSOLUTE AUTO 0.02 K/mm3 (0.00-0.23); BASOPHILS PERCENT AUTO 0 % (0-2); EOSINOPHILS ABSOLUTE AUTO 0.32 K/mm3 (0.00-0.68); EOSINOPHILS PERCENT AUTO 2 % (0-6); IMMATURE GRAN ABSOLUTE AUTO 0.05 K/mm3 (0.00-0.10); IMMATURE GRAN PERCENT AUTO 0 % (0-1); LYMPHOCYTES ABSOLUTE AUTO 1.05 K/mm3 (0.84-5.20); LYMPHOCYTES PERCENT AUTO 7 % (21-46); MONOCYTES ABSOLUTE AUTO 0.98 K/mm3 (0.16-1.47); MONOCYTES PERCENT AUTO 6 % (4-13); Mean Corpuscular HGB 29.8 pg (26.0-34.0); Mean Corpuscular HGB Conc 34.3 g/dL (31.5-36.5); Mean Corpuscular Volume 87 fL (80-100); NEUTROPHILS ABSOLUTE AUTO 12.87 K/mm3 (1.96-9.15); NEUTROPHILS PERCENT AUTO 84 % (41-73); Platelet Count 228 K/mm3 (150-400); RDW Standard Deviation 47.8 fL (35.1-46.3); Red Blood Cell Count 4.03 M/mm3 (4.30-5.90); White Blood Cell Count 15.29 K/mm3 (4.00-11.30)
[2022-12-27 17:43] LABS: Ethanol (Alcohol), Blood, Med <3 mg/dL
[2022-12-27 17:44] LABS: Alanine Aminotransfer (ALT/SGP 34 U/L (12-78); Albumin, Blood 3.8 g/dL (3.4-5.0); Albumin/Globulin Ratio 1.1 (0.8-1.8); Alk Phos 59 U/L (50-136); Anion Gap 8 mmol/L (6-16); Aspartate Aminotrans (AST/SGOT 43 U/L (12-37); Bilirubin, Total 1.3 mg/dL (0.1-1.0); Blood Urea Nitrogen 13 mg/dL (8-24); Bun/Creatinine Ratio 14.7 (12.0-20.0); CO2, Blood 25 mmol/L (21-32); Calcium, Blood 8.4 mg/dL (8.5-10.1); Chloride, Blood 101 mmol/L (98-108); Creatinine, Blood 0.89 mg/dL (0.60-1.20); Globulin, Blood 3.6 g/dL (2.2-4.0); Glomerular Filtration Rate 110 (60-); Glucose, Blood 93 mg/dL (70-99); Potassium, Blood 3.6 mmol/L (3.5-5.5); Sodium, Blood 134 mmol/L (136-145); Total Protein, Blood 7.4 g/dL (6.4-8.2)
[2022-12-27 18:32] LABS: U Amphetamine Screen DETECTED; U Barbituate Screen Not Detected; U Benzodiazapine Screen Not Detected; U Buprenorphine Screen Not Detected; U Cannabinoids Screen DETECTED; U Cocaine Screen Not Detected; U Methadone Screen Not Detected; U Methamphetamine Screen DETECTED; U Opiates Screen Not Detected; U Oxycodone Screen Not Detected; U Phencyclidine Screen Not Detected; U Propoxyphene Screen Not Detected
[2022-12-27] MEDS ORDERED: AZIT250 PO (20:03)
== END 2022-12-27 20:33 | disposition home or self-care (01) ==
LOC: ER 16:09
PROVIDERS: Emergency Medicine
DX: J18.9 Pneumonia, unspecified organism (principal); F15.10 Other stimulant abuse, uncomplicated; R45.1 Restlessness and agitation; R00.0 Tachycardia, unspecified; F17.290 Nicotine dependence, other tobacco product, uncomplicated; Z79.899 Other long term (current) drug therapy
CPT/HCPCS: 36415; 71045; 80053; 85025; 93005; 93010; 96361; 96374; 96376; 99284-25; A9270; G0480; J2060; J7030